=== PATIENT | male | born 1955 | race Caucasian/White ===

== ENCOUNTER 2024-09-07 09:28 | Outpatient (AMB) | payer BC, SELFPAY ==
--- NOTE | 2024-09-07 09:34 | A.OFFPC_ITS ---
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 Intake Note: New patient visit Dupligraph Operator Required: No Allergies No Known Allergies Allergy (Verified 09/07/24 09:35) Tobacco use date assessed: 09/07/24 Fall risk assessment: No Falls in past year Last assessed Fall Risk: 09/07/24 Dental Screening Dental Screen Date: 09/07/24 Did you have a dental visit in the last 12 months?: Yes Did you have a dental problem in the last 6 months where you did not have access to dental care?: No Was dental information given to patient?: Patient has dentist (sees dentist three times a year) HPI HPI Comments History of Present Illness Details The patient is a 69 year old male with a past medical history of atrial fibrillation on AC, hyperlipidemia, OCD, BPH, left ankle pain, lumbar ddd, peripheral neuropathy [facility] CV: Followed by Dr Seymour. On eliquis, lipitor. Denies exertional dyspnea, shortness of breath. BH: On fluvoxamine 50mg daily. MSK: Lumbar DDD-s/p lumbar discectomy, cervical surgery. Dr De La Rosa. On gabapentin 600mg TID for chronic peripheral neuropathy Left ankle pain-Dr Monk. Prior surgery. Reinjured. No further surgery Colonoscopy: 01/29/2018, 04/2024? History of polyps. 5 year repeat. Tdap: 11/06/2017 Received pneumonia vaccinations, shingrix ROS CONSTITUTIONAL: Denies weight loss, fever and chills. HEENT: Denies changes in vision and hearing. RESPIRATORY: Denies SOB and cough. CV: Denies palpitations and CP GI: Denies abdominal pain, nausea, vomiting and diarrhea. : Denies dysuria and urinary frequency. MSK: Denies new myalgia and joint pain. SKIN: Denies rash and pruritus. NEUROLOGICAL: Denies headache PSYCHIATRIC: Denies recent changes in mood. PHYSICAL EXAM: GENERAL: Alert and oriented x 3. NAD EYES: EOMI. Anicteric. HENT: Moist mucous membranes. No scleral icterus. No cervical lymphadenopathy. LUNGS: Clear to auscultation bilaterally. CARDIOVASCULAR: Regular rate and rhythm. No murmur. No JVD. ABDOMEN: Soft, non-tender +bs EXTREMITIES: No edema. Non-tender. SKIN: No rashes or lesions. Warm. NEUROLOGIC: No focal neurological deficits. CN II-XII grossly intact PSYCHIATRIC: Cooperative. 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 1. Little interest or pleasure in doing things: not at all 2. Feeling down, depressed, or hopeless: not at all 3. Trouble falling or staying asleep, or sleeping too much: not at all 4. Feeling tired or having little energy: not at all 5. Poor appetite or overeating: not at all 6. Feeling bad about yourself - or that you are a failure or have let yourself or your family down: not at all 7. Trouble concentrating on things, such as reading the newspaper or watching television: not at all 8. Moving or speaking so slowly that other people could have noticed. Or the opposite - being so fidgety or restless that you have been moving around a lot more than usual: not at all 9. Thoughts that you would be better off or of hurting yourself in some way: not at all Total score: 0 Depression Screening Interpretation: Negative Depression Screening Done: Yes 16736 - PHQ-9 Billing: Yes Source: Developed by Drs. Naresh Alvarez, Ro Rivera, Daren Ayoub and colleagues, with an educational luther from [employer]. Thrive Questionnaire Date Thrive assessed: 09/07/24 I am a: Patient What is your living situation today?: I have a steady place to live Within the past 12 months, did the food you bought not last and you didn't have the money to get more?: Never true Within the past 12 months, did you worry whether your food would run out before you got money to buy more?: Never true Do you have trouble paying for medicines?: No Do you have trouble getting transportation to medical appointments?: No Do you have trouble paying your heating and electricity bill?: No Do you have trouble taking care of your child, family member or friend?: No Do you have trouble with day-to-day activities such as bathing, preparing meals, shopping, managing finances, etc.?: No Are you currently unemployed and looking for a job?: No Are you interested in more education?: No Please select the resources that you would like help with: None Currently or been in a relationship where the following occur: No concerns reported THRIVE Score: 0 AUDIT C Alcohol Use Questionnaire (AUDIT-C) 1. How often do you have a drink containing alcohol?: Monthly or less 2. How many drinks containing alcohol do you have on a typical day when you are drinking?: 1 or 2 3. How often do you have six or more drinks on one occasion?: Never Total Score: 1 DANIEL-7 AMB Questionnaire DANIEL-7 Date DANIEL - 7 assessed: 09/07/24 Feeling nervous, anxious, or on edge: 0 = Not at all Not being able to stop or control worryin = Not at all Worrying too much about different things: 0 = Not at all Trouble relaxin = Not at all Being so restless that it is hard to sit still: 0 = Not at all Becoming easily annoyed or irritable: 0 = Not at all Feeling afraid as if something awful might happen: 0 = Not at all Total DANIEL-7 score (0-4 normal; 5-9 mild; 10-14 moderate; 15-21 severe): 0 Source: Developed by Ro MarteW. Miguel, Daren Ayoub and colleagues, with an educational luther from [employer]. DANIEL-7 Assessment Billing DANIEL-7 Assessment Tool: DANIEL-7 Assessment 66651 Physical exam (Primary Care) Vital Signs: Last Vital Signs Temp 98.3 F 09/07/24 09:36 Pulse 96 09/07/24 09:36 Resp 16 09/07/24 09:36 BP 106/69 09/07/24 09:36 Pulse Ox 97 09/07/24 09:36 Oxygen Delivery Method Room Air 09/07/24 09:36 BMI result Body Mass Index 35.0 Tobacco/Smoking Status: Tobacco use Status Tobacco use date assessed 09/07/24 09/07/24 09:46 Patient Tobacco Use Status Never used Tobacco 09/07/24 09:58 e-Cigarette/Vaping Use Never Used 09/07/24 09:58 PHQ-9: PHQ-9 Score PHQ-9: Total score 0 09/07/24 09:58 Depression Screening Interpretation: Negative Thrive Assessment: Date of Thrive Assessment Date Thrive assessed 09/07/24 09/07/24 09:52 Currently or been in a relationship where the following occur: No concerns reported Coding Level of Care Code New Pt Level 4 (61642) Complex EM visit Add On G2211 Diagnoses Encounter to establish care Z76.89 Paroxysmal atrial fibrillation I48.0 Atrial fibrillation type: paroxysmal Benign prostatic hyperplasia with lower urinary tract symptoms, symptom details unspecified N40.1 Lower urinary tract symptom detail: unspecified Lower urinary tract symptom presence: symptoms present Hyperlipidemia, unspecified hyperlipidemia type E78.5 Hyperlipidemia type: unspecified Additional Codes DANIEL-7 Assessment Billing - DANIEL-7 Assessment Tool: DANIEL-7 Assessment 78424 ([id number]) PHQ-9 - 22240 - PHQ-9 Billing: Yes ([id number]) Assessment & Plan Assessment & Plan (1) Encounter to establish care: Code(s): Z76.89 - Persons encountering health services in other specified circumstances (2) Atrial fibrillation: Code(s): I48.91 - Unspecified atrial fibrillation Category: Medical Qualifiers: Atrial fibrillation type: paroxysmal Qualified Code(s): I48.0 - Paroxysmal atrial fibrillation (3) BPH (benign prostatic hyperplasia): Code(s): N40.0 - Benign prostatic hyperplasia without lower urinary tract symptoms Category: Medical Qualifiers: Lower urinary tract symptom detail: unspecified Lower urinary tract symptom presence: symptoms present Qualified Code(s): N40.1 - Benign prostatic hyperplasia with lower urinary tract symptoms (4) Hyperlipidemia: Code(s): E78.5 - Hyperlipidemia, unspecified Category: Medical Qualifiers: Hyperlipidemia type: unspecified Qualified Code(s): E78.5 - Hyperlipidemia, unspecified Plan 69 year old male presenting to [facility] Past medical, surgical, social reviewed. HLD-on statin-labs six months. continue eliquis and cardiology follow up Colonoscopy is UTD BH-ocd stable on meds Orders: Orders Complete Blood Count Auto Diff 6 Months E78.5 - Hyperlipidemia, unspecified, I48.0 - Paroxysmal atrial fibrillation, N40.1 - Benign prostatic hyperplasia with lower urinary tract symptoms, Z90.79 - Acquired absence of other genital organ(s), Z98.890 - Other specified postprocedural states Comprehensive Met. Panel 6 Months E78.5 - Hyperlipidemia, unspecified, I48.0 - Paroxysmal atrial fibrillation, N40.1 - Benign prostatic hyperplasia with lower urinary tract symptoms, Z90.79 - Acquired absence of other genital organ(s), Z98.890 - Other specified postprocedural states Lipid Panel 6 Months E78.5 - Hyperlipidemia, unspecified, I48.0 - Paroxysmal atrial fibrillation, N40.1 - Benign prostatic hyperplasia with lower urinary tract symptoms, Z90.79 - Acquired absence of other genital organ(s), Z98.890 - Other specified postprocedural states Hemoglobin 6 Months E78.5 - Hyperlipidemia, unspecified, I48.0 - Paroxysmal atrial fibrillation, N40.1 - Benign prostatic hyperplasia with lower urinary tract symptoms, Z90.79 - Acquired absence of other genital organ(s), Z98.890 - Other specified postprocedural states TSH reflex Free T4 6 Months E78.5 - Hyperlipidemia, unspecified, I48.0 - Paroxysmal atrial fibrillation, N40.1 - Benign prostatic hyperplasia with lower urinary tract symptoms, Z90.79 - Acquired absence of other genital organ(s), Z98.890 - Other specified postprocedural states
[2024-09-07 09:36] VITALS: BP 106/69; PULSE 96; RESP 16; TEMP 36.8; O2SAT 97; BMI 35.0
--- OUTSIDE RECORDS SUMMARY | 2024-09-07 10:10 | XMS_ITS | Encounter Summary ---
Author Organization [facility] Address [address] [place] [address] Care Team Providers Care Chemical Radiation Technician Name Role Phone Melita Langford MD Primary Care Provider [phone] Encounter Details Date Type Department Care Team (Late st Contact Info) Description 03/24/2024 Lab Requisition [facility] - Main Lab [address] [place] [id number] Bahman Negrete MD [address] [facility] [address] [place] [address] Dysuria Social History Tobacco Use Types Packs/Day Years Used Date Smoking Tobacco: Never Smokeless Tobacco: Never Alcohol Use Standard Drinks/Week Comments Yes 1 (1 standard drink = 0.6 oz pur e alcohol) Sex and Gender Information Value Date Recorded Sex Assigned at Male 01/30/2024 9:45 AM EST Legal Sex Male 11:23 PM EST Gender Identity Male 01/30/2024 9:45 AM EST Sexual Orientation Straight 01/30/2024 9: 45 AM EST documented as of this encounter Plan of Treatment Not on file documented as of this encounter Procedures Procedure Name Priority Date/Time Associated Diagnosis Comments BACTERIAL IDENTIFICATION AND SUSCEPTIBILITY, AEROBIC Routine 03/23/2024 12:00 AM EST Dysuria documented in this encounter Results * (ABNORMAL) Bacterial identification and susceptibility, aerobic (03/23/2024 12:00 AM EST) Culture, Bacterial ID and Sensitivity Thania Cochran) FRANK 03/27/2024 10:[address] [facility] Comment: Susceptibility testing not routinely performed. If further therapeutic information is required, please consult an infectious disease specialist. This is an edited result. Previous organism was Gram Positive Cocci on 03/26/2024 at 1100 EST. Culture, Bacterial ID and Sensitivity Enterococcus faecalis(A) FRANK 03/27/2024 10:[address] [facility] Comment: The organism value for this result has been updated. These results have been appended to the previously preliminary verified report. Edited result: Previously reported as Enterococcus species on 03/25/2024 at 0909 EST. Other Urine specimen from urethra / Unknown 03/23/2024 03/24/2024 1:15 PM EST Narrative Organism Antibiotic Method Susceptibility Enterococcus faecalis Benzylpenicillin FRANK 4 ug/ml: Susceptible Enterococcus faecalis Ampicillin FRANK <=2 ug/ml: Susceptible Enterococcus faecalis Ciprofloxacin FRANK 1 ug/ml: Susceptible Enterococcus faecalis Levofloxacin FRANK 1 ug/ml: Susceptible Enterococcus faecalis Linezolid FRANK 2 ug/ml: Susceptible Enterococcus faecalis Vancomycin FRANK 1 ug/ml: Susceptible Enterococcus faecalis Tetracycline FRANK <=1 ug/ml: Susceptible Enterococcus faecalis Nitrofurantoin FRANK <=16 ug/ml: Susceptible Bahman Negrete MD LAB MICROBIOLOGY - G ENERAL ORDERABLES Final Result [facility] [address] [place] [address], documented in this encounter Visit Diagnoses Diagnosis Dysuria documented in this encounter Care Teams Chemical Radiation Technician Relationship Specialty Start Date End Date Melita Langford MD [address] [place] [phone] PCP - General Internal Medicine 06/09/24 documented as of this encounter
== END 2024-09-07 10:13 | disposition home or self-care (01) ==
LOC: HO.HMCFM 09:29
PROVIDERS: PCP Internal Medicine; Visit Provider Internal Medicine
DX: Z76.89 Persons encountering health services in other specified circumstances (principal); I48.0 Paroxysmal atrial fibrillation; N40.1 Benign prostatic hyperplasia with lower urinary tract symptoms; E78.5 Hyperlipidemia, unspecified

== ENCOUNTER → 2024-09-07 09:28 | Outpatient (BNVA) | payer BC, SELFPAY | PROVIDERS: PCP Internal Medicine; Visit Provider Internal Medicine | DX: Z13.31 Encounter for screening for depression (principal); I48.0 Paroxysmal atrial fibrillation; N40.1 Benign prostatic hyperplasia with lower urinary tract symptoms; E78.5 Hyperlipidemia, unspecified; Z76.89 Persons encountering health services in other specified circumstances | CPT/HCPCS: 96127 ==